=== PATIENT | male | born 1980 | race Caucasian/White ===

== ENCOUNTER 2020-03-16 07:46 | Emergency (ER) | payer MEDICAID ==
[~2020-03-16] VITALS: Ht 177.8 cm; Wt 75.6 kg
[~2020-03-16 07:46] MED LIST: MULT-642 PO
--- NOTE | 2020-03-16 08:45 | NUR ---
EXTERMINATOR TERMITE: PT TO ROOM FROM LOBBY GAIT SLOW AND STEADY
--- NOTE | 2020-03-16 08:51 | NUR ---
PT STATES HE FELL IN BATHROOM, HIT HEAD ON CLEANING SUPPLIES NEXT TO TOILET. "I THINK I GOT UP TOO FAST (AFTER GOING TO THE BATHROOM)", PASSED OUT "AND WOKE UP ON THE FLOOR". LAT CT LT INNER EYEBROW. DENIES VISION CHANGES. PT A&OX4, RESP EVEN & UNLABORED SPEECH CLEAR, SKIN OTHERWISE WNL. PT WAS AMBULATORY TO ED ROOM 25 W/ STEADY GAIT.
[2020-03-16] MEDS ORDERED: DIPH,PERTUSS(ACELL),TET VAC/PF 0.5 ML IM-VACC ONE ×2 (09:00→09:42)
[2020-03-16 09:38] LABS: BASOPHILS # (AUTO) 0.03 x10^3/uL (0-0.1); BASOPHILS % (AUTO) 0 % (0-1); EOSINOPHILS # (AUTO) 0.03 x10^3/uL (0-0.4); EOSINOPHILS % (AUTO) 0 % (1-7); LYMPHOCYTES # (AUTO) 1.06 x10^3/uL (1-3.4); LYMPHOCYTES % (AUTO) 9 % (22-44); MD NO; MEAN CORPUSCULAR HEMOGLOBIN 30.4 pg (27.5-34.5); MEAN CORPUSCULAR HGB CONC 33.2 g/dL (33.2-36.2); MEAN CORPUSCULAR VOLUME 91.4 fL (81-97); MEAN PLATELET VOLUME 10.4 fL (7.4-10.4); MONOCYTES # (AUTO) 0.56 x10^3/uL (0.2-0.8); MONOCYTES % (AUTO) 5 % (2-9); NEUTROPHILS # (AUTO) 9.98 x10^3/uL (1.8-6.8); NEUTROPHILS % (AUTO) 86 % (42-75); PLATELET COUNT 118 x10^3/uL (130-400); RED BLOOD COUNT 4.95 x10^6/uL (4.38-5.82); RED CELL DISTRIBUTION WIDTH 13.2 % (9.4-14.8)
[2020-03-16] MEDS ORDERED: L.E.T SOLUTION TP ONE ×2 (09:43→10:00)
[2020-03-16 09:50] LABS: ALBUMIN 4.1 g/dL (3.4-5.0); ANION GAP 4 mmol/L (5-15); CALCIUM 9.4 mg/dL (8.5-10.1); CHLORIDE 110 mmol/L (98-107); CREATININE 0.98 mg/dL (0.7-1.3)
[2020-03-16 09:54] LABS: TROPONIN I < 0.015 ng/mL (0.000-0.045)
[2020-03-16] MEDS ORDERED: LIDOCAINE-MPF 1%, 5ML INFIL ONE (10:00)
--- NOTE | 2020-03-16 10:04 | NUR ---
LET APPLIED. TDAP GIVEN. PT LYING QUIETLY ON GURNEY, AWAITING WOUND IRRIGATION AND SUTURING.
--- NOTE | 2020-03-16 10:06 | NUR ---
SUTURE SET-UP AT BS
--- NOTE | 2020-03-16 10:30 | NUR ---
WOUND CLEANSED PER KAVIN LEBRON BS FOR SUTURING.
[2020-03-16] MEDS ORDERED: NEOSPORIN OINT. PKT 1 PACKET ONE (11:00)
[2020-03-16 11:19] VITALS: BP 118/72
== END 2020-03-16 11:22 | disposition home or self-care (01) ==
LOC: ED 08:26
DX: S01.81XA Laceration without foreign body of other part of head, initial encounter (principal); R55 Syncope and collapse; W19.XXXA Unspecified fall, initial encounter; Y93.89 Activity, other specified; Y92.098 Other place in other non-institutional residence as the place of occurrence of the external cause; Y99.8 Other external cause status
CPT/HCPCS: 12014; 12041; 36415; 70450; 80048; 82040; 84484; 85025; 90471; 90715; 93005; 99285

== ENCOUNTER 2020-03-22 15:14 | Emergency (ER) | payer MEDICAID ==
[~2020-03-22] VITALS: Ht 180.3 cm; Wt 78.6 kg
[2020-03-22 15:21] VITALS: BP 124/73
[2020-03-22] MEDS ORDERED: NEOSPORIN OINT. PKT 1 PACKET ONE (15:29)
== END 2020-03-22 15:54 | disposition home or self-care (01) ==
LOC: ED 15:36
DX: S01.112D Laceration without foreign body of left eyelid and periocular area, subsequent encounter (principal); Z48.00 Encounter for change or removal of nonsurgical wound dressing; W18.39XD Other fall on same level, subsequent encounter
CPT/HCPCS: 99281; 99282